=== PATIENT | female | born 1970 | race Caucasian/White ===

== ENCOUNTER 2017-03-25 18:32 | Emergency (ER) | payer SELFPAY ==
[2017-03-25 18:44] VITALS: BP 134/84
--- NOTE | 2017-03-25 19:17 | RAD ---
Indication: 6 months LEFT heel pain without recent injury. Initial injury one year ago. Comparison: No relevant prior exams available on the [facility] for comparison. Technique: 4 views of the LEFT hindfoot Report: Negative for fracture or articular malalignment. Negative for heel spurs. No significant arthropathic change evident. Unremarkable soft tissue contours. IMPRESSION: Negative radiographic exam of the LEFT hindfoot.
--- NOTE | 2017-03-25 19:40 | UC ---
Lower Extremity/Ankle HPI - HPI Summary HPI Summary: INJURY ONE YEAR AGO, STEPPED ON ROCK WITH HEEL. SINCE THAT TIME HAS NOT HAD COMPLETE HEALING OF HEEL. PAIN CURRENTLY WITH AMBULATION. NO HISTORY OF PLANTAR FACIITIS. NO BRUISING., OR RECENT INJURY. - History of Current Complaint Chief Complaint: UCLowerExtremity Stated Complaint: FOOT PAIN Time Seen by Provider: 03/25/17 18:46 Hx Obtained From: Patient Hx Last Menstrual Period: >1 YEAR AGO Onset/Duration: Gradual Onset, Lasting Weeks, Still Present Severity Initially: Severe Severity Currently: Moderate Aggravating Factor(s): Standing, Ambulation Alleviating Factor(s): Rest, Elevation Able to Bear Weight: Yes - Risk Factors Gout Risk Factors: Negative DVT Risk Factors: Negative Septic Arthritis Risk Factor: Negative - Allergies/Home Medications Allergies/Adverse Reactions: Allergies Allergy/AdvReac Type Severity Reaction Status Date / Time No Known Allergies Allergy Verified 03/25/17 18:44 PMH/Surg Hx/FS Hx/Imm Hx Previously Healthy: Yes - Surgical History Surgical History: Yes Surgery Procedure, Year, and Place: 3X C-SECTIONS - Family History Known Family History: Negative: Blood Disorder - Social History Occupation: Employed Full-time Lives: With Family Alcohol Use: None Substance Use Type: None Smoking Status (MU): Current Every Day Smoker Type: Cigarettes Amount Used/How Often: 5 cig/day Review of Systems Constitutional: Negative Skin: Negative Eyes: Negative ENT: Negative Respiratory: Negative Cardiovascular: Negative Gastrointestinal: Negative Genitourinary: Negative Motor: Negative Neurovascular: Negative Musculoskeletal: Arthralgia, Myalgia Neurological: Negative Psychological: Negative All Other Systems Reviewed And Are Negative: Yes Physical Exam Triage Information Reviewed: Yes Appearance: Well-Appearing, No Pain Distress, Well-Nourished Vital Signs: Initial Vital Signs Temp 98.7 F 03/25/17 18:40 Pulse 73 03/25/17 18:40 Resp 18 03/25/17 18:40 BP 134/84 03/25/17 18:40 Pulse Ox 98 03/25/17 18:40 Vital Signs Reviewed: Yes Eye Exam: Normal ENT Exam: Normal ENT: Positive: Normal ENT inspection Dental Exam: Normal Neck exam: Normal Neck: Positive: Supple, Nontender, No Lymphadenopathy Respiratory Exam: Normal Respiratory: Positive: Chest non-tender, Lungs clear, Normal breath sounds, No respiratory distress Cardiovascular Exam: Normal Cardiovascular: Positive: RRR, No Murmur, Pulses Normal Abdominal Exam: Normal Musculoskeletal: Positive: Strength Intact, ROM Intact, No Edema, Other: - TENDERNESS TO LEFT HEEL Neurological Exam: Normal Psychological Exam: Normal Skin Exam: Normal Lower Extremity Course/Dx - Differential Dx/Diagnosis Differential Diagnosis/HQI/PQRI: Fracture (Closed), Sprain, Strain Provider Diagnoses: LEFT PLANTAR FASCIITIS; LEFT HEEL PAIN Discharge - Discharge Plan Condition: Stable Disposition: HOME Patient Education Materials: Plantar Fasciitis (ED), Foot Contusion (ED), Foot Sprain (ED) Referrals: [facility] [Provider Group] [facility] [Outside] Yahir Grey MD [Medical Doctor] - Yahir Tyler DPM [Doctor of Podiatric Medicine] - No Primary Care Phys,NOPCP [Primary Care Provider] -
== END 2017-03-25 19:36 | disposition home or self-care (01) ==
LOC: UCEAST 18:32
DX: Z72.0 Tobacco use (principal); M72.2 Plantar fascial fibromatosis
CPT/HCPCS: 99211; G0463

== ENCOUNTER 2018-09-07 18:04 | Emergency (ER) | payer MEDICAID, OTHER ==
[2018-09-07 18:52] VITALS: BP 153/94
--- NOTE | 2018-09-07 20:05 | UC ---
Respiratory Complaint HPI - HPI Summary HPI Summary: 48 y/o female presents to the urgent care c/o sore throat, fever, nasal congestion and a dry cough since 09/04/2018. Pt states fever today. Pt states pain w/ swallowing is 8/10. Pt has not taking anything today for pain, Her grand daughter has similar symptoms. Pt denies SOB, chest pain, abdominal pain, N/V/D. 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 Negative: Wheezing - Risk Factors Pulmonary Embolism Risk Factors: Negative Cardiac Risk Factors: Negative Pseudomonas Risk Factors: Negative Tuberculosis Risk Factors: Negative - Allergies/Home Medications Allergies/Adverse Reactions: Allergies Allergy/AdvReac Type Severity Reaction Status Date / Time No Known Allergies Allergy Verified 09/07/18 18:53 Home Medications: Home Medications RX: Acetaminophen TAB* [Tylenol TAB*] 975 mg PO Q4H PRN 09/07/18 [History Confirmed 09/07/18] PMH/Surg Hx/FS Hx/Imm Hx Previously Healthy: Yes - Pt denies PMHX - Surgical History Surgical History: Yes Surgery Procedure, Year, and Place: 3X C-SECTIONS - Family History Known Family History: Positive: None - Pt deneis FMHX Negative: Blood Disorder - Social History Occupation: Employed Full-time Lives: With Family Alcohol Use: None Substance Use Type: None Smoking Status (MU): Light Every Day Tobacco Smoker Type: Cigarettes Amount Used/How Often: 5 cig/day Review of Systems All Other Systems Reviewed And Are Negative: Yes Constitutional: Positive: Fever, Chills, Fatigue, Other - body aches Skin: Positive: Negative Eyes: Positive: Negative ENT: Positive: Sore Throat, Ear Ache - b/L ear pain Respiratory: Positive: Negative Cardiovascular: Positive: Negative Gastrointestinal: Positive: Negative Genitourinary: Positive: Negative Motor: Positive: Negative Neurovascular: Positive: Negative Musculoskeletal: Positive: Negative Neurological: Positive: Headache Psychological: Positive: Negative Is Patient Immunocompromised?: No Physical Exam - Summary Physical Exam Summary: VITAL SIGNS: Reviewed. GENERAL: Patient is a well developed and nourished female who is sitting comfortable in the examining table. Patient is not in any acute respiratory distress. HEAD AND FACE: No signs of trauma. No ecchymosis, hematomas or skull depressions. No sinus tenderness. EYES: PERRLA, EOMI x 2, No injected conjunctiva, no nystagmus. No photophobia. EARS: Hearing grossly intact. Ear canals and tympanic membranes are within normal limits. MOUTH: Positive pharynx with erythema, exudates, palatal petechiae. B/L tonsillar enlargement with exudate. Uvula in midline. NECK: Supple, trachea is midline, Positive anterior cervical lymphadenopathy, no JVD, no carotid bruit, no c-spine tenderness, neck with full ROM. No meningeal signs, no Kernig's or brudzinskis signs. CHEST: Symmetric, no tenderness at palpation LUNGS: Clear to auscultation bilaterally. No wheezing or crackles. CVS: Regular rate and rhythm, S1 and S2 present, no murmurs or gallops appreciated. ABDOMEN: Soft, non-tender. No signs of distention. No rebound no guarding, and no masses palpated. Bowel sounds are normal. EXTREMITIES: FROM in all major joints, no edema, no cyanosis or clubbing. NEURO: Alert and oriented x 3. No acute neurological deficits. Speech is normal and follows commands. SKIN: Dry and warm Triage Information Reviewed: Yes Vital Signs: Initial Vital Signs Temp 101.2 F 09/07/18 18:48 Pulse 92 09/07/18 18:48 Resp 18 09/07/18 18:48 BP 153/94 09/07/18 18:48 Pulse Ox 100 09/07/18 18:48 UC Diagnostic Evaluation - Laboratory O2 Sat by Pulse Oximetry: 100 Respiratory Course/Dx - Course Course Of Treatment: 48 y/o female presents to the urgent care c/o sore throat, fever, nasal congestion and a dry cough since 09/04/2018. Pt states fever today. Pt states pain w/ swallowing is 8/10. Pt has not taking anything today for pain, Her grand daughter has similar symptoms. Pt denies SOB, chest pain, abdominal pain, N/V/D.Hx obtained. Pt w/ pharyngitis on examination. Pt is febrile 101.2F. Pt given Ibuprofen PO at the clinic by the nurse. Pt tolerated well medication and Pt felt better. Rapid strep= negative, Influenza A&B= negative. Monospot and CBC ordered and sent to lab to r/o Mononucleosis. Pt will be notified of the results. Viral pharyngitis.Pt Rx ibuprofen PO to alleviates symptoms of pain and swelling. Advised on hand washing to avoid spreading. Pt advised to rest, eat well and avoid strenuous exercise. If symptoms do not improve or worsen advised to return to the urgent care or f/u with her PCP for further evaluation and treatment. Pt's BP is elevated today advised to decrease salt in diet, monitor BP and f/u with PCP for further management.Pt understood and agreed w/ plan of care. - Differential Dx/Diagnosis Differential Diagnosis/HQI/PQRI: Bronchitis, Influenza, Sinusitis, Other - pharyngitis, mononucleosis Provider Diagnosis: Pharyngitis, Elevated BP without diagnosis of hypertension Discharge - Sign-Out/Discharge Documenting (check all that apply): Patient Departure - d/c home All imaging exams completed and their final reports reviewed: No Studies - Discharge Plan Condition: Stable Disposition: HOME Prescriptions: RX: Ibuprofen TAB* [Motrin TAB* 800 MG] 800 mg PO Q6H PRN #30 tab PRN Reason: Sore Throat Patient Education Materials: Pharyngitis (ED), Low-Sodium Diet (ED) Forms: *Work Release Referrals: [facility] [place] [facility] [Outside] - 3 Days Additional Instructions: 1-Please take ibuprofen PO q6-8hrs prn as instructed after meals to alleviate pain and swelling. Increase fluid intake, eat well, rest and avoid strenuous exercise 2- Rapid strep and Rapid influenza A&B are negative. Monospot and CBC order and sent to lab o r/o Mononucleosis 3-If symptoms do not improve or worsen please return to the urgent care or f/u with your PCP for further evaluation and treatment. 4- Your BP is elevated today. please decrease salt in your diet, monitor BP and if it continues to be elevated please f/u with your PCP for further management - Billing Disposition and Condition Condition: STABLE Disposition: Home
[2018-09-07] MEDS ORDERED: Ibuprofen TAB* 400 MG PO ONE (20:32)
[2018-09-08 10:31] LABS: Hematocrit 43 % (35-47); Hemoglobin 14.9 g/dl (12.0-16.0); Mean Corpuscular HGB Conc 35 g/dl (31-36); Mean Corpuscular Hemoglobin 30 pg (27-31); Mean Corpuscular Volume 87 fL (80-97); Platelet Count 197 10^3/ul (150-450); Red Blood Count 4.94 10^6/ul (4.00-5.40); Red Cell Distribution Width 13 % (10.5-15); White Blood Count 8.8 10^3/ul (3.5-10.8)
[2018-09-08 11:40] LABS: Monocytes % 5 %
[2018-09-08 11:44] LABS: ABS Basophils 0.08 10^3/ul (0-0.2); ABS Neutrophils 6.51 10^3/ul (1.5-7.7)
--- NOTE | 2018-09-09 16:44 | UC ---
- Progress Note Progress Note: EBV + IgG neg IgM Neg acute mono ljj 09/09/18 Course/Dx - Diagnoses Provider Diagnoses: Pharyngitis, Elevated BP without diagnosis of hypertension Discharge - Sign-Out/Discharge Documenting (check all that apply): Post-Discharge Follow Up All imaging exams completed and their final reports reviewed: No Studies - Discharge Plan Condition: Stable Disposition: HOME Prescriptions: Ibuprofen TAB* [Motrin TAB* 800 MG] 800 mg PO Q6H PRN #30 tab PRN Reason: Sore Throat Patient Education Materials: Pharyngitis (ED), Low-Sodium Diet (ED) Forms: *Work Release Referrals: [facility] [place] [facility] [Outside] - 3 Days Additional Instructions: 1-Please take ibuprofen PO q6-8hrs prn as instructed after meals to alleviate pain and swelling. Increase fluid intake, eat well, rest and avoid strenuous exercise 2- Rapid strep and Rapid influenza A&B are negative. Monospot and CBC order and sent to lab o r/o Mononucleosis 3-If symptoms do not improve or worsen please return to the urgent care or f/u with your PCP for further evaluation and treatment. 4- Your BP is elevated today. please decrease salt in your diet, monitor BP and if it continues to be elevated please f/u with your PCP for further management - Billing Disposition and Condition Condition: STABLE Disposition: Home
== END 2018-09-07 20:45 | disposition home or self-care (01) ==
LOC: UCEAST 18:04
DX: J02.9 Acute pharyngitis, unspecified (principal); R03.0 Elevated blood-pressure reading, without diagnosis of hypertension; F17.210 Nicotine dependence, cigarettes, uncomplicated
CPT/HCPCS: 36415; 85025; 85060; 86308; 86664; 86665; 87651; 99212; A9270-GY; G0463

== ENCOUNTER 2019-02-25 09:53 | Emergency (ER) | payer MEDICAID, OTHER ==
[2019-02-25 10:16] VITALS: BP 137/88
--- NOTE | 2019-02-25 10:38 | UC ---
Dental HPI - HPI Summary HPI Summary: 49 y/o female presents to the urgent care c/o infected tooth in her RT lower jaw w/ swelling since last night. Pt reports a tooth filling fell off. She woke up in pain around 0500AM this morning. She took Ibuprofen PO 800mg PO and then at 0900 seh took Tylenol PO. Pain now is 3/10. She has a Dentist appt at the end of this week. Pt denies fever, trismus, GRADY dizziness, sore throat, SOB, chest pain, abdominal pain< N/V/D. 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 Onset/Duration: Gradual Onset, Lasting Days - 1 day, Worse Since - this morning Severity: Moderate Pain Intensity: 3 Pain Scale Used: 0-10 Numeric Aggravating Factor(s): Chewing Alleviating Factor(s): OTC Meds Related History: Swelling - left lower jaw - Allergies/Home Medications Allergies/Adverse Reactions: Allergies Allergy/AdvReac Type Severity Reaction Status Date / Time No Known Allergies Allergy Verified 02/25/19 10:16 PMH/Surg Hx/FS Hx/Imm Hx Previously Healthy: Yes - Pt denies PMHX - Surgical History Surgical History: Yes Surgery Procedure, Year, and Place: 3X C-SECTIONS - Family History Known Family History: Positive: Hypertension Negative: Blood Disorder - Social History Occupation: Employed Full-time Lives: With Family Alcohol Use: Rare Substance Use Type: None Smoking Status (MU): Light Every Day Tobacco Smoker Type: Cigarettes Amount Used/How Often: 5 cig/day Review of Systems All Other Systems Reviewed And Are Negative: Yes Constitutional: Positive: Negative Skin: Positive: Negative Eyes: Positive: Negative ENT: Positive: Dental Pain - left lower jaw w/ cavities and swelling since yesterday Respiratory: Positive: Negative Cardiovascular: Positive: Negative Gastrointestinal: Positive: Negative Genitourinary: Positive: Negative Motor: Positive: Negative Neurovascular: Positive: Negative Musculoskeletal: Positive: Negative Neurological: Positive: Negative Psychological: Positive: Negative Is Patient Immunocompromised?: No Physical Exam - Summary Physical Exam Summary: Vital Signs Reviewed: Yes General: Well-Appearing, Well-Nourished female sitting in the examining table w /o any respiratory or pain distress Eyes: Positive: Conjunctiva Clear - PERRLA, EOMI, ENT: Positive: Normal ENT inspection, Hearing grossly normal, Pharynx normal, TMs normal - B/L external ear canals clear,. Negative: Tonsillar swelling, Tonsillar exudate, Trismus Dental: Positive: Gross Decay/Caries on molars #28 and 29 w/ gingival swelling and erythema, tender to percussion. involves tissue surrounding theses molars, w / positive anterior Cervical Lymphadenopathy. Neck: Positive: Supple Respiratory: Positive: Chest non-tender, Lungs clear, Normal breath sounds, No respiratory distress Cardiovascular: Positive: RRR, No Murmur, Pulses Normal, Brisk Capillary Refill Abdomen Description: Positive: Nontender, No Organomegaly, Soft. Negative: CVA Tenderness (R), CVA Tenderness (L) Bowel Sounds: Positive: Present Musculoskeletal: Positive: Strength Intact, ROM Intact, No Edema Neurological Exam: Normal Psychological Exam: Normal Skin Exam: Normal Triage Information Reviewed: Yes Vital Signs: Initial Vital Signs Temp 97.9 F 02/25/19 10:12 Pulse 87 02/25/19 10:12 Resp 18 02/25/19 10:12 BP 137/88 02/25/19 10:12 Pulse Ox 100 02/25/19 10:12 Dental Complaint Course/Dx - Course Course Of Treatment: 49 y/o female presents to the urgent care c/o infected tooth in her RT lower jaw w/ swelling since last night. Pt reports a tooth filling fell off. She woke up in pain around 0500AM this morning. She took Ibuprofen PO 800mg PO and then at 0900 seh took Tylenol PO. Pain now is 3/10. She has a Dentist appt at the end of this week. Pt denies fever, trismus, GRADY dizziness, sore throat, SOB, chest pain, abdominal pain< N/V/D. Hx obtained. Pt with dental abscess around molar # 28 and 29 w/ gross decay on examination. Pt Rx Clindamycin PO and Ibuprofen PO fas directed below. Pt strongly advised to f/u with her Dentist appt as soon as possible further evaluation and treatment. D/C instructions explained. Pt understood and agreed with plan of care. - Differential Dx/Diagnosis Differential Diagnosis/Dx: Dental Abscess, Dental Caries, Fractured Tooth, Odontogenic Pain, Peridontic Disease, Peritonsillar Abcess Provider Diagnosis: Dental abscess Discharge - Sign-Out/Discharge Documenting (check all that apply): Patient Departure - d/C home All imaging exams completed and their final reports reviewed: No Studies - Discharge Plan Condition: Stable Disposition: HOME Prescriptions: Clindamycin Cap(NF) [Clindamycin Cap 300 mg Cap(NF)] 300 mg PO TID #30 cap Ibuprofen TAB* [Motrin TAB* 800 MG] 800 mg PO Q6H PRN #30 tab PRN Reason: dental pain Patient Education Materials: Dental Abscess (ED) Referrals: [facility] [place] [facility] [Outside] - 3 Days Additional Instructions: 1-Please take full course of antibiotic to avoid resistance. Take yogurts w/ probiotics or Culturelle to protect your GI system 2- Take Ibuprofen PO as instructed after meals to alleviate pain and swelling. 3- F/u with your Dentist or Dental List provided as soon as possible for further treatment. 4- If symptoms do not improve or worsen please return to the urgent care or f/u with your PCP for further evaluation and treatment - Billing Disposition and Condition Condition: STABLE Disposition: Home
== END 2019-02-25 11:04 | disposition home or self-care (01) ==
LOC: UCEAST 09:53
DX: K04.7 Periapical abscess without sinus (principal); F17.210 Nicotine dependence, cigarettes, uncomplicated
CPT/HCPCS: 99212; G0463